=== PATIENT | male | born 1970 | race Caucasian/White ===

== ENCOUNTER 2017-11-22 19:00 | Emergency (ER) | payer BC, OTHER ==
[2017-11-22] MEDS: HYDROCODONE/APAP (5/325) TAB PO (19:43)
[2017-11-22] MEDS: LIDOCAINE 2% (MDV) 20 ML INJ INJ (19:44)
== END 2017-11-22 21:50 | disposition home or self-care (01) ==
LOC: FTE 19:00
DX: S91.112A Laceration without foreign body of left great toe without damage to nail, initial encounter (principal); S92.422A Displaced fracture of distal phalanx of left great toe, initial encounter for closed fracture; S92.532A Displaced fracture of distal phalanx of left lesser toe(s), initial encounter for closed fracture; W20.8XXA Other cause of strike by thrown, projected or falling object, initial encounter; Y92.9 Unspecified place or not applicable
CPT/HCPCS: 12001; 73630-LT; 99283-25